=== PATIENT | male | born 1980 | race Hispanic/Latino ===

== ENCOUNTER 2017-11-16 08:13 | Day surgery (SDC) | payer OTHER ==
[2017-11-16 09:44] LABS: INR 0.9 (0.87-1.13); Partial Thromboplastin Time 27.7 Sec. (24.2-36.6)
[2017-11-16] MEDS ORDERED: NORCO 5/325 PO PRN (12:11)
[2017-11-16 12:18] LABS: Glucose,CSF 64 mg/dL
[2017-11-16 12:38] LABS: Appearance,CSF Clear
[2017-11-16 12:39] LABS: Red Blood Cell,CSF 2.2 /mm3 (0-0); White Blood Cell,CSF 12.6 /mm3 (1-10)
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
[2017-11-16 13:15] LABS: Total Cells Counted 100 /mm3
[2017-11-16 13:20] LABS: Basophils CSF 0 %
[2017-11-16 14:34] VITALS: BP 125/79
== END 2017-11-16 13:10 | disposition home or self-care (01) ==
LOC: CATHLABREC 08:13 → EDSTATUS 08:30 → CATHLABREC 13:10
PROVIDERS: ATTEND Specialist
DX: G93.2 Benign intracranial hypertension (principal); H47.10 Unspecified papilledema; G43.909 Migraine, unspecified, not intractable, without status migrainosus; Z87.828 Personal history of other (healed) physical injury and trauma; Z79.01 Long term (current) use of anticoagulants; Z79.899 Other long term (current) drug therapy
CPT/HCPCS: 36415; 62270; 77003; 82947; 84160; 85610; 85730; 87116; 89051